=== PATIENT | female | born 1950 | race Two or more races ===

== ENCOUNTER 2023-12-20 08:04 | Day surgery (SDC) | payer OTHER ==
[~2023-12-20] VITALS: Ht 165.1 cm; Wt 75.7 kg
[2023-12-20] VITALS (7 sets, daily range): BP systolic 97–141; BP diastolic 39–64; PULSE 60–64; RESP 12–17; O2SAT 91–96
[~2023-12-20 08:04] MED LIST: APIX5TAB PO; ATOR20TA50 PO; CHOL20007 PO; DRON400T PO; LOSA-533 PO; MAGN250T8 PO; MELA3TAB12 PO; METF-370 PO; OMEP20TA PO; PARO10TA93 PO; TRAM50TA2 PO; ZOLP5TAB PO
[2023-12-20] MEDS ORDERED: VERAPAMIL 2.5MG/ML INJ 2ML VIAL IV ONE ×2 (09:15→10:41)
[2023-12-20] MEDS ORDERED: HEPARIN SODIUM (PORCINE) 5000 UNITS/ML 1ML VIAL ONE ×3 (09:15→11:15)
[2023-12-20] MEDS ORDERED: fentaNYL CITRATE 100 MCG/2 ML VL ONE ×2 (09:15→10:38)
[2023-12-20] MEDS ORDERED: MIDAZOLAM HCL 2MG/2ML 2ml VIAL (1mg/ml) ONE ×2 (09:16→10:38)
[2023-12-20] MEDS ORDERED: LIDOCAINE 2%HCL (LOCAL ANESTH.) INJ 20ML MDV ONE ×2 (09:16→10:52)
[2023-12-20] MEDS ORDERED: ANGIOMAX 250 MG VIAL IV ONE ×2 (09:34→10:38)
[2023-12-20] MEDS ORDERED: SODIUM CHL 0.9% 0 ML ONE ×2 (09:34→10:38)
[2023-12-20] MEDS ORDERED: IODIXANOL 320MG/ML 100ML BTL IV ONE (10:36)
[2023-12-20] MEDS ORDERED: HEPARIN IN NS 1000Units/500mL 1,500 ML ONE (10:36)
== END 2023-12-20 13:30 | disposition home or self-care (01) ==
LOC: CATH 08:04
PROVIDERS: ATTEND Internal Medicine
DX: I25.10 Atherosclerotic heart disease of native coronary artery without angina pectoris (principal); R93.1 Abnormal findings on diagnostic imaging of heart and coronary circulation; I12.9 Hypertensive chronic kidney disease with stage 1 through stage 4 chronic kidney disease, or unspecified chronic kidney disease; E11.22 Type 2 diabetes mellitus with diabetic chronic kidney disease; N18.30 Chronic kidney disease, stage 3 unspecified; I48.0 Paroxysmal atrial fibrillation; F32.A Depression, unspecified; I25.2 Old myocardial infarction; E78.5 Hyperlipidemia, unspecified; Z87.891 Personal history of nicotine dependence; Z88.2 Allergy status to sulfonamides; Z88.8 Allergy status to other drugs, medicaments and biological substances; Z91.048 Other nonmedicinal substance allergy status; Z79.899 Other long term (current) drug therapy; Z95.0 Presence of cardiac pacemaker
CPT/HCPCS: 75580; 93458; C1887; C1894; J1644; J2250; J3010; J7030; Q9967; 93571; 99152; 99153